=== PATIENT | male | born 1940 | race Caucasian/White ===

== ENCOUNTER 2016-03-17 05:24 | Emergency (ER) | payer MEDICARE, OTHER ==
[~2016-03-17] VITALS: Ht 198.1 cm; Wt 120.0 kg
[2016-03-17 05:28] VITALS: Ht 198.1 cm; Wt 120.0 kg
[2016-03-17] MEDS ORDERED: SOD CHLORIDE 0.9% 500 ML IV STA (06:40)
[2016-03-17] MEDS ORDERED: morphine 2 MG INJ IV STA (06:40)
--- NOTE | 2016-03-17 07:17 | ERA ---
ER Documentation Chief Complaint Date/Time DATE: 03/17/16 TIME: 07:12 Chief Complaint dizziness tonight, cant walk quite right HPI This 75-year-old male presents emergency room for feeling dizzy this morning approximately one hour ago. States this happens from time to time as he has multiple wounds from the [place] War. He has had sequela I since then. He denies chest pain shortness of breath nausea vomiting. The dizziness is described as lightheadedness. He feels otherwise well. 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 ROS All systems reviewed and are negative except as per history of present illness. PMhx/Soc History of Surgery: No Anesthesia Reaction: No Hx Neurological Disorder: No Hx Respiratory Disorders: No Hx Cardiac Disorders: No Hx Psychiatric Problems: No Hx Miscellaneous Medical Probl: No Hx Alcohol Use: No Hx Substance Use: No Smoking Status: Never smoker Physical Exam Vitals Vital Signs Date Time Temp Pulse Resp B/P Pulse Ox O2 Delivery O2 Flow Rate FiO2 03/17/16 05:28 118 16 169/88 Physical Exam Const: [] No distress Head: Atraumatic Eyes: Normal Conjunctiva, EOMI, PERRLA ENT: Normal External Ears, Nose and Mouth. Neck: Full range of motion..~ No meningismus. Resp: Clear to auscultation bilaterally Cardio: Regular rate and rhythm, no murmurs Abd: Soft, obese, non tender, non distended. Normal bowel sounds Skin: No petechiae or rashes Back: No midline or flank tenderness Ext: No cyanosis, or edema Neur: Awake and alert and oriented 3, cranial nerves II through XII intact, cerebellar intact, normal gait Psych: Normal Mood and Affect Result Diagram: 03/17/16 0700 03/17/16 0700 Results 24 hrs Laboratory Tests Test 03/17/16 07:00 Activated Partial Thromboplast Time 36.8Sec Alanine Aminotransferase (ALT/SGPT) 24IU/L Albumin 3.6g/dl Albumin/Globulin Ratio 1.12 Alkaline Phosphatase 62IU/L Anion Gap 16 Aspartate Amino Transf (AST/SGOT) 24IU/L Basophils # 0.010^3/ul Basophils % 0.2% Blood Morphology Comment Blood Urea Nitrogen 22mg/dl Calcium Level 8.8mg/dl Carbon Dioxide Level 25mmol/L Chloride Level 105mmol/L Creatinine 0.94mg/dl Direct Bilirubin 0.00mg/dl Eosinophils # 0.010^3/ul Eosinophils % 0.6% Globulin 3.20g/dl Glucose Level 98mg/dl Hematocrit 42.6% Hemoglobin 14.3g/dl INR International Normalized Ratio 1.59 Indirect Bilirubin 0.6mg/dl Lactic Acid Level 1.3mmol/L Lipase 65U/L Lymphocytes # 1.010^3/ul Lymphocytes % 16.3% Mean Corpuscular Hemoglobin 28.3pg Mean Corpuscular Hemoglobin Concent 33.5g/dl Mean Corpuscular Volume 84.4fl Mean Platelet Volume 8.5fl Monocytes # 0.510^3/ul Monocytes % 7.4% Neutrophils # 4.810^3/ul Neutrophils % 75.5% Nucleated Red Blood Cells # 0.010^3/ul Nucleated Red Blood Cells % 0.0/100WBC Platelet Count 74033^3/UL Potassium Level 4.1mmol/L Prothrombin Time 19.1Sec Prothrombin Time Ratio 1.5 Red Blood Count 5.0510^6/ul Red Cell Distribution Width 15.4% Sodium Level 142mmol/L Total Bilirubin 0.6mg/dl Total Protein 6.8g/dl Troponin I < 0.012ng/ml White Blood Count 6.410^3/ul Current Medications Medications (Trade) Dose Ordered Sig/Felix Route PRN Reason Start Time Stop Time Status Last Admin Dose Admin Sodium Chloride (NS) 500 ml @ 500 mls/hr Q1H STAT IV 03/17/16 06:40 03/17/16 07:39 DC Morphine Sulfate (morphine) 2 mg ONCE STAT IV 03/17/16 06:40 03/17/16 06:43 DC Procedures/MDM 75-year-old male states that he gets frequent transient episodes of dizziness presents with a recent but arty resolved episode of dizziness. He was monitored in the ER for greater than 3 hours during which time he had no repeat of the dizziness and remained stable on the monitor. He was given IV fluids as well. No signs of ischemia on his EKG and negative troponin. Head CT shows no acute process as well. Patient has excellent follow-up pain he says at [facility] will follow-up with both minister helper and neurologist. Very low concern for subarachnoid hemorrhage, meningitis, acute coronary syndrome. He does have a subtherapeutic INR level on Coumadin. I have informed him of this. I'm giving him strict return precautions to return to the emergency room as well as primary care follow-up instructions to call today for appointment for specialist as well as PCP as soon as possible. EKG interpretation: Atrial fibrillation rate of 64, normal axis, no ST or T- wave changes concerning for acute ischemia. surveillance monitor interpretation: Rate controlled A. fib with no other arrhythmia Chest X ray interpretation: No acute process no widening sign pneumothorax no hemothorax no bony edema no fractures, cardiomegaly present. CT head interpretation: I see no acute process, no hemorrhage no mass effect no midline shift no skull fractures Departure Diagnosis: Primary Impression: Subtherapeutic international normalized ratio (INR) Additional Impression: Near syncope Condition: Stable HAYDEN DAVIS DO Mar 17, 2016 07:17
--- NOTE | 2016-03-17 07:26 | RADRPT ---
PROCEDURE: CT Brain without. CLINICAL INDICATION: Dizziness, remote history of head injury TECHNIQUE: A CT of the brain was performed utilizing axial sections from the skull base through th e vertex without contrast. The scan was reviewed in soft tissue brain and high frequency resolution bone algorithm windows. Images were reviewed on a high-resolution PACS workstation. The exam CTDI = 40.63 mGy, and the DLP = 720.23 mGy-cm. COMPARISON: None available FINDINGS: There is mild prominence of the lateral ventricles and cerebral sulci, consistent with diffuse cereb ral atrophy. There is no intracranial hemorrhage, midline shift, or mass effect. No abnormal extra- axial fluid collections are identified. There is hypoattenuation of the periventricular white matte r. There are encephalomalacic changes of the left medial occipital lobe and left parafalcine frontal lobe. Small bilateral basal ganglia lacunar infarcts are noted. The baptiste-white differentiation is well preserved. The basal cisterns are patent. The posterior fossa is unremarkable. Vascular calc ifications are noted within the intracranial portions of the vertebral and internal carotid arteries . The visualized portions of the orbits are unremarkable. The paranasal sinuses and mastoid air cells are clear. No calvarial fracture or abnormality are identified. The soft tissues are unremarkable . IMPRESSION: 1. No acute intracranial abnormality. There are encephalomalacic changes of the left parafalcine fr ontal lobe and left medial occipital lobe, which may reflect the sequela of prior ischemic injury or trauma. 2. Bilateral basal ganglia lacunar infarcts. 3. Age related senescent changes with mild diffuse cerebral atrophy. 4. Patchy periventricular hypoattenuation, nonspecific finding, most commonly associated with micro vascular ischemic changes. 5. Arterial atherosclerosis. RPTAT: HH .Katerin Smith MD, Date Time Electronically viewed and signed by .Katerin Smith MD, MD on 03/17/2016 07:25 .G/
--- NOTE | 2016-03-17 07:28 | RADRPT ---
PROCEDURE: XR Chest. CLINICAL INDICATION: Abdominal pain TECHNIQUE: A single AP view of the chest was obtained. COMPARISON: None. FINDINGS: No focal airspace opacification, pleural effusion or pneumothorax is seen. The cardiomediastinal si lhouette is mildly enlarged. Calcifications are seen within the aortic arch. The osseous structure s are unremarkable. IMPRESSION: 1. No radiographic evidence of acute cardiopulmonary disease. 2. Mild cardiomegaly and aortic atherosclerosis. RPTAT: HH .Katerin Smith MD, Date Time Electronically viewed and signed by .Katerin Smith MD, MD on 03/17/2016 07:27 .G/
[2016-03-17 07:55] LABS: ALBUMIN 3.6 g/dl (3.3-4.9); BASOPHILS % 0.2 % (0.0-2.0); CHLORIDE 105 mmol/L (97-110); EOSINOPHILS % 0.6 % (0.0-7.0); HEMATOCRIT 42.6 % (42.0-52.0); HEMOGLOBIN 14.3 g/dl (14.0-18.0); LYMPHOCYTES % 16.3 % (15.0-51.0); MEAN CORPUSCULAR HEMOGLOBIN 28.3 pg (29.0-33.0); MEAN CORPUSCULAR HGB CONC 33.5 g/dl (32.0-37.0); MEAN CORPUSCULAR VOLUME 84.4 fl (82.0-101.0); MEAN PLATELET VOLUME 8.5 fl (7.4-10.4); MONOCYTE # 0.5 10^3/ul (0.3-0.9); MONOCYTES % 7.4 % (0.0-11.0); NEUTROPHIL # 4.8 10^3/ul (1.6-7.5); NEUTROPHILS % 75.5 % (39.0-77.0); PLATELET COUNT 163 10^3/UL (140-440); POTASSIUM 4.1 mmol/L (3.5-5.1); RED BLOOD COUNT 5.05 10^6/ul (4.70-6.10); RED CELL DISTRIBUTION WIDTH 15.4 % (11.5-14.5); SODIUM 142 mmol/L (135-144); UNCORRECTED WBC 6.4 10^3/ul (4.8-10.8); WHITE BLOOD COUNT 6.4 10^3/ul (4.8-10.8)
[2016-03-17 07:58] LABS: ALANINE AMINOTRANSFERASE 24 IU/L (13-69); ALBUMIN/GLOBULIN RATIO 1.12; ALKALINE PHOSPHATASE 62 IU/L (42-121); ANION GAP 16 (8-16); ASPARTATE AMINO TRANSFERASE 24 IU/L (15-46); BILIRUBIN,INDIRECT 0.6 mg/dl (0-1.1); BILIRUBIN,TOTAL 0.6 mg/dl (0.2-1.3); BLOOD UREA NITROGEN 22 mg/dl (7-20); CALCIUM 8.8 mg/dl (8.4-10.2); CARBON DIOXIDE 25 mmol/L (21-31); CREATININE 0.94 mg/dl (0.61-1.24); GLUCOSE 98 mg/dl (70-220); TOTAL PROTEIN 6.8 g/dl (6.1-8.1)
[2016-03-17 07:59] LABS: INR 1.59; PROTIME 19.1 Sec (12.2-14.2); PT RATIO 1.5
[2016-03-17 08:00] LABS: PARTIAL THROMBOPLASTIN TIME 36.8 Sec (25.0-35.0)
[2016-03-17 08:11] LABS: CONDITION 1; LH ANALYZER COMMENTS 1
[2016-03-17 08:33] LABS: TROPONIN-I < 0.012 ng/ml (0.00-0.12)
[2016-03-17] MEDS ORDERED: CLOT30CR24 TOP (10:21)
[2016-03-17 10:31] VITALS: BP 158/100; PULSE 78; RESP 20; TEMP 98.3
== END 2016-03-17 10:42 | disposition home or self-care (01) ==
LOC: E/R 05:24
DX: R79.1 Abnormal coagulation profile (principal); R55 Syncope and collapse
CPT/HCPCS: 36415; 70450; 71010; 80053; 83605; 83690; 84484; 85025; 85610; 85730; 93005; 99285; J7040

== ENCOUNTER 2016-05-29 08:43 | Emergency (ER) | payer MEDICARE, OTHER ==
[~2016-05-29] VITALS: Wt 98.0 kg
[~2016-05-29 08:43] MED LIST: CLOT30CR24 TOP
[2016-05-29 11:17] LABS: INR 1.52; PROTIME 18.4 Sec (12.2-14.2); PT RATIO 1.4
[2016-05-29 11:18] LABS: PARTIAL THROMBOPLASTIN TIME 35.6 Sec (25.0-35.0)
[2016-05-29 11:50] VITALS: BP 162/80; PULSE 70; RESP 20; TEMP 98
--- NOTE | 2016-05-29 11:50 | ERD ---
ER Documentation Chief Complaint Date/Time DATE: 05/29/16 TIME: 11:48 Chief Complaint pt needs pt and inr checked , no physical complaints. possibly missed dose HPI This 76-year-old male presents with a request to have a PT INR check. He is on Coumadin for atrial fibrillation. Denies any active bleeding, chest pain, shortness of breath. He usually gets his blood drawn every 1-2 weeks with primary doctor but is unable to travel to his primary doctor today and presented to a closer hospital. He takes 6 milligrams of Coumadin per day ROS All systems reviewed and are negative except as per history of present illness. Medications Home Meds Active Scripts Clotrimazole* (Clotrimazole* AF) 1% - 30 Gm Cream.gm., 1 APPLIC TOP BID for 7 Days, TUB Prov:HAYDEN DAVIS DO 03/17/16 PMhx/Soc History of Surgery: No Anesthesia Reaction: No Hx Neurological Disorder: No Hx Respiratory Disorders: No Hx Cardiac Disorders: No Hx Psychiatric Problems: No Hx Miscellaneous Medical Probl: No Hx Alcohol Use: No Hx Substance Use: No Physical Exam Vitals Vital Signs Date Time Temp Pulse Resp B/P Pulse Ox O2 Delivery O2 Flow Rate FiO2 05/29/16 08:52 98.5 71 20 170/85 97 Physical Exam Const: [] Alert, pac-hhe-lnithnqad. Morbidly obese. Head: Atraumatic Eyes: Normal Conjunctiva ENT: Normal External Ears, Nose and Mouth. Neck: Full range of motion..~ No meningismus. Resp: Clear to auscultation bilaterally Cardio: Regular rate and irregular rhythm. Rhythm, no murmurs Abd: Soft, non tender, non distended. Normal bowel sounds Skin: No petechiae or rashes Back: No midline or flank tenderness Ext: No cyanosis, or edema Neur: Awake and alert Psych: Normal Mood and Affect Results 24 hrs Laboratory Tests Test 05/29/16 10:35 Prothrombin Time 18.4Sec Prothrombin Time Ratio 1.4 INR International Normalized Ratio 1.52 Activated Partial Thromboplast Time 35.6Sec Procedures/MDM INR is 1.5 today. Patient has been instructed to take an additional one half tablet of Coumadin and is instructed to do so. Patient is advised to follow-up with primary care doctor for ongoing primary care and blood pressure recheck his blood pressure is elevated today. Patient has no other signs or symptoms of emergent illness so he should return to ER for new or worsening symptoms. The patient was stable with no new complaints during the ER course. Clinically, there is no current evidence to suggest meningitis, sepsis, acute abdomen, pneumonia, acute coronary syndrome, pulmonary embolism, or any other emergent condition appearing to require further evaluation or hospitalization. The patient should certainly return for any new or worsening symptoms per the aftercare instructions. They should otherwise follow-up with her primary care doctor for reevaluation this week. Departure Diagnosis: Primary Impression: Atrial fibrillation Atrial fibrillation type: chronic Qualified Code: I48.2 - Chronic atrial fibrillation Additional Impressions: Encounter for laboratory test Hypertension Hypertension type: essential hypertension Qualified Code: I10 - Essential hypertension Condition: Stable Patient Instructions: Atrial Fibrillation, High Blood Pressure (Hypertension) Additional Instructions: INR is 1.5 today. Follow-up with primary doctor in temporarily increase Coumadin as advised. ANIRUDH MULLIGAN MD May 29, 2016 11:50
== END 2016-05-29 11:55 | disposition home or self-care (01) ==
LOC: FTE 08:43
DX: I48.2 Chronic atrial fibrillation (principal); I10 Essential (primary) hypertension
CPT/HCPCS: 85610; 85730; 99283

== ENCOUNTER 2016-06-02 09:40 | Emergency (ER) | payer MEDICARE, OTHER ==
[~2016-06-02] VITALS: Ht 180.3 cm; Wt 13.6 kg
[2016-06-02 09:50] VITALS: Ht 180.3 cm; Wt 13.6 kg
--- NOTE | 2016-06-02 10:26 | ERD ---
ER Documentation Chief Complaint Date/Time DATE: 06/02/16 TIME: 10:25 Chief Complaint GROUND LEVEL MECHANICAL FALL, DENIES PAIN. HPI 76-year-old male who presents to the emergency room for ground-level mechanical fall. Patient stated that he going to the bathroom at around 2 AM to urinate, when he was unable to control his urine, had a mechanical fall. Stated that he was able to control his balance before he fell landed in his bilateral hand/ forearms. During history taking patient is forgetful and unable to express the sequence of the events that happened last night. Stated that he has history of traumatic brain injury in a couple of strokes in the past and this is the reason why "sometimes it is hard for me to express the events." He also stated that he has history of incontinence thrice but this is the first time that happened this year. He also stated that he has concern about his Coumadin 6 mg daily because he was not able to take 1 dose last night. Denies headache, direct head injury, loss of consciousness, dizziness, blurry vision, changes in vision, photophobia, facial pain, ear pain, throat pain, difficulty swallowing, neck pain, shoulder pain, chest pain, cough, hemoptysis, abdominal pain, back pain, loss of appetite, nausea, vomiting, projectile vomiting, hematochezia, diarrhea, constipation, urinary symptoms, bladder and bowel incontinences, extremity weakness, unilateral weakness, extremity tenderness, numbness or tingling sensation, difficulty walking, recent travel, recent exposure to illness, recent antibiotic use in the last 3 months, fever, chills. Allergy: No known drug allergies. PMH: Chronic traumatic brain injury, stroke. Medications: Coumadin 6 mg p.o. Surgery: Family history: Denies. Primary Social History: Retired. Denies smoking, use of alcohol, use of illegal drugs. Primary care physician: Dr. Richie Ashraf (IM/GI). Telephone number: . ROS All systems reviewed and are negative except as per history of present illness. Medications Home Meds Active Scripts Cephalexin* (Keflex*) 500 Mg Capsule, 500 MG PO BID for 7 Days, CAP Prov:PASILABAN,KLAR F 06/02/16 Clotrimazole* (Clotrimazole* AF) 1% - 30 Gm Cream.gm., 1 APPLIC TOP BID for 7 Days, TUB Prov:HAYDEN DAVIS DO 03/17/16 Allergies Allergies: Coded Allergies: No Known Allergy (Unverified , 06/02/16) PMhx/Soc History of Surgery: No Anesthesia Reaction: No Hx Neurological Disorder: No Hx Respiratory Disorders: No Hx Cardiac Disorders: No Hx Psychiatric Problems: No Hx Miscellaneous Medical Probl: No Hx Alcohol Use: No Hx Substance Use: No Physical Exam Vitals Vital Signs Date Time Temp Pulse Resp B/P Pulse Ox O2 Delivery O2 Flow Rate FiO2 06/02/16 09:50 97.6 77 20 151/89 96 Physical Exam CONSTITUTIONAL: Well-appearing; well-nourished. HEAD: Normocephalic; atraumatic. EYES: Conjunctiva clear, sclera non-icteric, EOM intact. PERRL. Extraocular movement of his eyes is within normal limits. No pain on eye movement. Ears: Hearing intact. EACs clear, TMs non-bulging, non-inflamed, translucent & mobile, ossicles normal appearance, No obstructions, no erythema, no discharges Nose: No obstructions. No polyps. No external lesions. Mucosa non-inflamed. No external lesions, septum and turbinates normal. No rhinorrhea. No discharges. Frontal sinus is non-tender to palpation. Maxillary sinus is non-tender to palpation. MOUTH: Moist mucous membranes, no lesion, no obstructions, no vesicles, no thrush, patent airway Throat: Uvula in midline. Right tonsil is +1 with no erythema, no exudate. Left tonsil is +1 with no erythema, no exudate. Tolerating secretions well. Good gag reflex. Patent airway. Neck: Supple, without lesions, bruits, or adenopathy. No mass. Thyroid non- enlarged and non-tender to palpation. CHEST: Symmetrical chest. Respirations even and not labored. No retractions noted. CARDIOVASCULAR: Normal S1, S2. RRR. No murmurs, gallops. RESPIRATORY: Normal chest excursion with respiration; breath sounds clear and equal bilaterally; no wheezes, rhonchi, or rales. Breathing even and unlabored. Speaking in clear, full, and complete sentences w/ ease. ABDOMEN: Normal bowel sounds normal. Soft, round, non-distended, non-guarding, no tenderness, no rebound, no organomegaly, no masses, no pulsating abdominal mass. No hernia. No peritoneal signs. : No CVA tenderness. BACK: Symmetrical shoulder. Spine is midline without deformity, tenderness. No evidence of trauma or deformity. PELVIS: Stable pelvis. No evidence of trauma or deformity. MUSCULOSKELETAL: Normal gait and station. No misalignment, asymmetry, crepitation, defects, tenderness, masses, effusions, decreased range of motion, instability, atrophy or abnormal strength or tone in the head, neck, spine, ribs , pelvis or extremities. Mild supraspinatus tenderness right upper and left upper (stated that he has chronic bilateral shoulder pain due to the fact that he was at [place] when he was younger and had injuries to bilateral shoulders, did not have a surgery for this). Bilateral shoulders has no obvious deformity/ swelling/discoloration and has good and full range of motion. Bilateral shoulder has no tenderness. Good and full range of motion of neck without pain/ limitation/discomfort. Good and full range of motion of spine without pain/ limitation/discomfort. Bilateral hips are stable. Negative on straight leg test. Bilateral knees are unremarkable. No calf tenderness. NEUROVASCULAR: Distal pulses are present. Pedal pulse are present, equal, and normal. Capillary refills are < 2 seconds. NEUROLOGIC: Alert and oriented x4. Speaks full and clear sentences. Cranial Nerves II-XII normal. Sensation to pain, touch, and proprioception normal. Grossly unremarkable. Romberg test is negative. Forgetful. Unable to express the full sequence of the events that happened last night. PSYCHOLOGICAL: The patients mood and manner are appropriate. No hallucinations , delusions. Not SI. Not HI. Has the capacity to decide for self SKIN: Normal for age and ethnicity; warm; dry; good turgor; no apparent lesions or exudates. No rashes, hives, discoloration. Intact. Results 24 hrs Laboratory Tests Test 06/02/16 10:46 Urine Color LT. YELLOW Urine Clarity CLEAR Urine pH 5.5 Urine Specific Fords 1.015 Urine Ketones NEGATIVE Urine Nitrite NEGATIVE Urine Bilirubin NEGATIVE Urine Urobilinogen 0.2 E.U./dL Urine Leukocyte Esterase 1+ Urine Microscopic RBC 0-2/HPF Urine Microscopic WBC 10-25/HPF Urine Epithelial Cells FEW Urine Bacteria FEW Urine Hemoglobin 1+ Urine Glucose NEGATIVE% Urine Total Protein 1+ Current Medications Medications (Trade) Dose Ordered Sig/Felix Route PRN Reason Start Time Stop Time Status Last Admin Dose Admin Ceftriaxone Sodium (Rocephin) 1 gm ONCE ONCE IM 06/02/16 12:00 06/02/16 12:01 DC Procedures/MDM Examination: Please see physical examination. Disease process, medical treatment was explained to the patient and family member. They verbalized understanding and agreed with the diagnostic tests, medical treatment, and follow-up care. Radiology: CT of the head. Impression: No significant change since 03/17/2016. Acute intracranial abnormality identified. Moderate chronic microvascular disease and intracranial atherosclerosis. Chronic right posterior limb internal capsule, left thalamic and left lentiform nucleus lacunar infarcts. Moderate volume loss. Urinalysis: Reviewed. Urine culture: Treatment: Ceftriaxone IM. Re-evaluation: Denies headache, dizziness, blurry vision, neck pain, chest pain , back pain, abdominal pain. No nausea and vomiting. No unilateral deficits. No focal neuro deficits. Romberg test is negative. Consultation: None. Differential diagnosis: Stroke versus possible head injury versus urinary tract infection Medical decision makin-year-old male who presents to the emergency room for ground-level mechanical fall. Patient stated that he going to the bathroom at around 2 AM to urinate, when he was unable to control his urine, had a mechanical fall. Stated that he was able to control his balance before he fell landed in his bilateral hand/forearms. During history taking patient is forgetful and unable to express the sequence of the events that happened last night. Stated that he has history of traumatic brain injury in a couple of strokes in the past and this is the reason why "sometimes it is hard for me to express the events." He also stated that he has history of incontinence thrice but this is the first time that happened this year. He also stated that he has concern about his Coumadin 6 mg daily because he was not able to take 1 dose last night. Patient's complaint, patient's history about his complaint, my physical findings , diagnostic test results, my re-evaluation are consistent with my final diagnosis of urinary tract infection (uncomplicated), mechanical fall with no significant injury. Case and medical management was discussed with supervising emergency room physician, Dr. Miguel Lauren who agreed with my medical decision making. He also agreed with my diagnostic tests and follow-up care. Medications prescribed are the following: Keflex. Patient and family member are made aware of the side effects and adverse reactions of the medications prescribed. Instructed on when to seek emergent and medical attention in case allergic/anaphylactic reactions or severe side effects and or adverse reactions to medications. Patient and family member verbalized understanding. Patient instructed Instructed to follow-up with his PCP in 24-48 hours. Patient stated that they will call his primary care provider to schedule an appointment. Instructed to Call 911 for chest pain, shortness of breath. Advised to come back here in ED as soon as possible for severity of symptoms which includes but not limited to: any new symptoms; shortness of breath/difficulty of breathing; cardiovascular changes; severe gastrointestinal symptoms; signs and symptoms of bleeding and or infection; signs of compartment syndrome/neurovascular changes; neurological changes/deficits. Patient and family member verbalized understanding. Upon discharge, patient is alert and oriented x 4, speaks full and clear sentences, denies pain, has no neurological deficits, has no neurovascular deficits, difficulty of breathing. Breathing even and unlabored. Lung sounds are clear to auscultation. Not in distress. Appears comfortable. Ambulatory with steady gait. Appears satisfied with care provided here in ED. Departure Diagnosis: Primary Impression: Fall with no significant injury Encounter type: initial encounter Qualified Code: W19.XXXA - Fall with no significant injury, initial encounter Additional Impression: Fall Encounter type: initial encounter Qualified Code: W19.XXXA - Fall, initial encounter Condition: Good Additional Instructions: atient instructed Instructed to follow-up with his PCP in 24-48 hours. Instructed to Call 911 for chest pain, shortness of breath. Advised to come back here in ED as soon as possible for severity of symptoms which includes but not limited to: any new symptoms; shortness of breath/difficulty of breathing; cardiovascular changes; severe gastrointestinal symptoms; signs and symptoms of bleeding and or infection; signs of compartment syndrome/neurovascular changes; neurological changes/deficits. Patient and family member verbalized understanding. DEBBY WHARTON Jun 02, 2016 10:26
[2016-06-02 10:58] LABS: ADD UMIC YES; URINE BILIRUBIN (Dip) NEGATIVE (NEGATIVE); URINE BLOOD (Dip) 1+ (NEGATIVE); URINE COLOR LT. YELLOW (YELLOW); URINE GLUCOSE (Dip) NEGATIVE (NEGATIVE); URINE KETONES (Dip) NEGATIVE (NEGATIVE); URINE LEUKOCYTE ESTERASE (Dip) 1+ (NEGATIVE); URINE NITRITE (Dip) NEGATIVE (NEGATIVE); URINE TOTAL PROTEIN (Dip) 1+ (NEGATIVE); URINE UROBILINOGEN (Dip) 0.2 E.U./dL (0.1-1.0)
[2016-06-02 11:22] LABS: BACTERIA,URINE FEW; URINE RBCS 0-2 /HPF (0)
[2016-06-02] MEDS ORDERED: CEPH-443 PO (11:27)
--- NOTE | 2016-06-02 11:36 | RADRPT ---
PROCEDURE: CT Brain without contrast. CLINICAL INDICATION: Neurologic deficit TECHNIQUE: A CT of the brain was performed on multidetector high-resolution CT scanner utilizing a xial sections from the skull base through the vertex without contrast. One or more of the following dose reduction techniques were used: Automated exposure control, Adjustment of the mA and/or kV acc ording to patient size, and/or use of iterative reconstruction technique. DOSE: CTDI = 44 mGy and the DLP = 810 mGy-cm. COMPARISON: Head CT 03/17/2016 FINDINGS: No acute intracranial hemorrhage, significant mass effect or midline shift. Patchy hypoattenuation o f the cerebral white matter is compatible with moderate chronic microvascular ischemic changes. Resizer Operator juan miguel right posterior limb internal capsule, left thalamic, and left lentiform nucleus lacunar infarct s. Extensive vascular calcifications. Stable ventricle size. Moderate volume loss. No significant opacification of the visualized paranasal sinuses or mastoids. IMPRESSION: No significant change since 03/17/2016 No acute intracranial abnormality identified. Moderate chronic microvascular disease and intracranial atherosclerosis. Chronic right posterior limb internal capsule, left thalamic and left lentiform nucleus lacunar infa rcts. Moderate volume loss. RPTAT: AA .George Woods MD, Date Time Electronically viewed and signed by .George Woods MD, on 06/02/2016 11:35 .T/
[2016-06-02] MEDS ORDERED: CEFTRIAXONE 1 GM INJ IM ONE (12:00)
== END 2016-06-02 12:10 | disposition home or self-care (01) ==
LOC: FTE 09:40
DX: Z04.3 Encounter for examination and observation following other accident (principal); R93.0 Abnormal findings on diagnostic imaging of skull and head, not elsewhere classified; R82.79 Other abnormal findings on microbiological examination of urine
CPT/HCPCS: 70450; 81001; 87086; J0696; 81003; 96372

== ENCOUNTER 2016-07-31 08:22 | Emergency (ER) | payer MEDICARE, OTHER ==
[~2016-07-31] VITALS: Ht 170.2 cm; Wt 136.0 kg
[~2016-07-31 08:22] MED LIST changes: +CEPH-443 PO
[2016-07-31 08:28] VITALS: Ht 170.2 cm; Wt 136.0 kg
[2016-07-31] MEDS ORDERED: HYDROCODONE/APAP (5/325) TAB PO ONE (08:30)
[2016-07-31 08:48] LABS: ADD SCAN DIFF NO
[2016-07-31 08:49] LABS: BASOPHILS % 0.3 % (0.0-2.0); EOSINOPHILS % 0.5 % (0.0-7.0); HEMATOCRIT 44.7 % (42.0-52.0); HEMOGLOBIN 14.5 g/dl (14.0-18.0); LYMPHOCYTES % 15.9 % (15.0-51.0); MEAN CORPUSCULAR HEMOGLOBIN 28.3 pg (29.0-33.0); MEAN CORPUSCULAR HGB CONC 32.4 g/dl (32.0-37.0); MEAN CORPUSCULAR VOLUME 87.1 fl (82.0-101.0); MEAN PLATELET VOLUME 9.6 fl (7.4-10.4); MONOCYTE # 0.5 10^3/ul (0.3-0.9); MONOCYTES % 7.7 % (0.0-11.0); NEUTROPHIL # 4.7 10^3/ul (1.6-7.5); NEUTROPHILS % 75.3 % (39.0-77.0); PLATELET COUNT 175 10^3/UL (140-415); RED BLOOD COUNT 5.13 10^6/ul (4.70-6.10); RED CELL DISTRIBUTION WIDTH 14.7 % (11.5-14.5); WHITE BLOOD COUNT 6.3 10^3/ul (4.8-10.8)
[2016-07-31 09:11] LABS: ALBUMIN 3.7 g/dl (3.3-4.9)
--- NOTE | 2016-07-31 09:11 | RADRPT ---
PROCEDURE: US DVT. CLINICAL INDICATION: Chest pain. Evaluate for deep venous thrombosis. TECHNIQUE: Multiple longitudinal and transverse images of the left lower extremity veins were obta ined with baptiste scale and color Doppler imaging. 2D grayscale measurements with compression, color D oppler flow, and augmentation was performed. The calf veins were interrogated as well. COMPARISON: No prior studies are available for comparison. FINDINGS: The left common femoral, superficial femoral and popliteal veins are normally compressible throughou t. Color flow demonstrates normal filling of the vessel. Normal waveforms are visualized and there is normal response to augmentation. IMPRESSION: 1. No evidence of a deep vein thrombosis involving the left lower extremity. RPTAT: [facility] Physician Rebeca Date Time Electronically viewed and signed by Physician Rebeca on 07/31/2016 09:11 /
[2016-07-31 09:12] LABS: CHLORIDE 110 mmol/L (97-110); SODIUM 141 mmol/L (135-144)
[2016-07-31 09:14] LABS: ANION GAP 8 (8-16); ASPARTATE AMINO TRANSFERASE 19 IU/L (15-46); BILIRUBIN,INDIRECT 0.7 mg/dl (0-1.1); BILIRUBIN,TOTAL 0.7 mg/dl (0.2-1.3); CARBON DIOXIDE 27 mmol/L (21-31); CREATININE 1.04 mg/dl (0.61-1.24)
[2016-07-31 09:15] LABS: ALANINE AMINOTRANSFERASE 22 IU/L (13-69); ALBUMIN/GLOBULIN RATIO 1.08; ALKALINE PHOSPHATASE 64 IU/L (42-121); BLOOD UREA NITROGEN 22 mg/dl (7-20); CALCIUM 9.1 mg/dl (8.4-10.2); GLUCOSE 102 mg/dl (70-220); TOTAL PROTEIN 7.1 g/dl (6.1-8.1)
[2016-07-31] MEDS ORDERED: NEOM14.28 TP (09:19)
[2016-07-31] MEDS ORDERED: WARF2TAB PO (09:19)
[2016-07-31] MEDS ORDERED: MECL-77 PO (09:19)
[2016-07-31] MEDS ORDERED: ATOR20TA38 PO (09:19)
[2016-07-31] MEDS ORDERED: DILT120C77 PO (09:19)
[2016-07-31] MEDS ORDERED: ASPI81TA3 PO (09:19)
[2016-07-31] MEDS ORDERED: LISI20TA11 PO (09:19)
[2016-07-31 09:29] LABS: TROPONIN-I < 0.012 ng/ml (0.00-0.12)
[2016-07-31 09:33] LABS: INR 2.54; PROTIME 27.7 Sec (12.2-14.2); PT RATIO 2.2
[2016-07-31 09:34] LABS: PARTIAL THROMBOPLASTIN TIME 46.2 Sec (25.0-35.0)
--- NOTE | 2016-07-31 09:38 | RADRPT ---
PROCEDURE: XR Chest. CLINICAL INDICATION: Chest pain TECHNIQUE: Chest AP portable. COMPARISON: Once FINDINGS: The mediastinal structures are unremarkable. There is calcification of the thoracic aorta (consiste nt with atherosclerosis). There is mild cardiomegaly. There is mild pulmonary venous hypertension. The lung vicente are unremarkable. No consolidation is identified. The pleural spaces are unremar kable. There are senescent changes of the axial skeleton. IMPRESSION: Calcification of the thoracic aorta (consistent with atherosclerosis) Mild cardiomegaly Mild pulmonary venous hypertension RPTAT: [facility] .Kailash Angel MD, Date Time Electronically viewed and signed by .Kailash Angel MD, on 07/31/2016 09:38 .B/
--- NOTE | 2016-07-31 10:11 | ERD ---
ER Documentation Chief Complaint Date/Time DATE: 07/31/16 TIME: 826 Chief Complaint left leg pain HPI 76-year-old male presents the emergency department by ambulance from his care facility for evaluation of left leg pain. Patient is a difficult historian with what appears to be an underlying traumatic brain injury for many years ago. He states he has been having left leg pain for 60 years. It is difficult to assess if there is any new trauma, new pain or anything else it is new or acute. He states the pain is moderate to severe. It is mostly localized in his left thigh area. He denies numbness, tingling, loss of function. ROS All systems reviewed and are negative except as per history of present illness. Medications Home Meds Reported Medications Neomy Sulf/Bacitrac Zn/Poly (NEOSPORIN ANTIBIOTIC OINTMENT) 14.2 Gm Oint...g., 14.2 GM TP TID, #1 TUB 07/31/16 Aspirin* (Aspirin* Chew) 81 Mg Tab.chew, 81 MG PO DAILY, TAB.CHEW 07/31/16 Lisinopril* (Lisinopril*) 20 Mg Tablet, 20 MG PO BID, #30 TAB 07/31/16 Atorvastatin Calcium* (Atorvastatin Calcium*) 20 Mg Tablet, 20 MG PO QHS, #30 TAB 07/31/16 Warfarin Sodium* (Coumadin*) 2 Mg Tablet, 2 MG PO DAILY, TAB 07/31/16 Meclizine Hcl* (Meclizine Hcl*) 25 Mg Tablet, 25 MG PO Q8H Y for DIZZINESS, TAB 07/31/16 Diltiazem Hcl* (Cardizem CD*) 120 Mg Cap.sr.24h, 120 MG PO DAILY, #30 CAP 07/31/16 Discontinued Scripts Cephalexin* (Keflex*) 500 Mg Capsule, 500 MG PO BID for 7 Days, CAP Prov:PASILABANMIRTHAAR F 06/02/16 Clotrimazole* (Clotrimazole* AF) 1% - 30 Gm Cream.gm., 1 APPLIC TOP BID for 7 Days, TUB Prov:HAYDEN DAVIS DO 03/17/16 Allergies Allergies: Coded Allergies: No Known Allergy (Unverified , 06/02/16) PMhx/Soc History of Surgery: No Anesthesia Reaction: No Hx Neurological Disorder: No Hx Respiratory Disorders: No Hx Cardiac Disorders: No Hx Psychiatric Problems: No Hx Miscellaneous Medical Probl: Yes (ptsd) Hx Alcohol Use: No Hx Substance Use: No Smoking Status: Never smoker FmHx Noncontributory for chief complaint Physical Exam Vitals Vital Signs Date Time Temp Pulse Resp B/P Pulse Ox O2 Delivery O2 Flow Rate FiO2 07/31/16 08:31 Nasal Cannula 2 07/31/16 08:28 98.2 60 18 156/90 99 Physical Exam GENERAL: The patient is well developed and appropriate for usual state of health in no apparent distress HEENT: Pupils equal, round, and reactive to light. EOMI. There is no scleral icterus. NECK: C-spine is soft and supple, there is no meningismus. There is no cervical lymphadenopathy. LUNGS: Clear to auscultation bilaterally. There are no rales, wheezes or rhonchi. HEART:irregular rate and rhythm, no murmurs, clicks, rubs or gallops. ABDOMEN: Soft, non-tender, non-distended. There are bowel sounds in all four quadrants. No rebound or guarding. EXTREMITIES: There is no peripheral cyanosis or edema. No focal swelling or erythema. NEURO: The patient moves all four extremities with 5/5 strength. Cranial nerves II - XII are intact. Normal gait. Alert and oriented SKIN: There is no apparent rash or petechiae. HEME/LYMPHATIC: There is no evidence of excessive bruising or lymphedema. PSYCHIATRIC: The patient does not appear anxious or depressed. Pulses: Strong equal bilaterally in both lower extremities in both PT and DP areas. Result Diagram: 07/31/16 0840 07/31/16 0840 Results 24 hrs Laboratory Tests Test 07/31/16 08:40 White Blood Count 6.310^3/ul Red Blood Count 5.1310^6/ul Hemoglobin 14.5g/dl Hematocrit 44.7% Mean Corpuscular Volume 87.1fl Mean Corpuscular Hemoglobin 28.3pg Mean Corpuscular Hemoglobin Concent 32.4g/dl Red Cell Distribution Width 14.7% Platelet Count 24466^3/UL Mean Platelet Volume 9.6fl Neutrophils % 75.3% Lymphocytes % 15.9% Monocytes % 7.7% Eosinophils % 0.5% Basophils % 0.3% Nucleated Red Blood Cells % 0.0/100WBC Neutrophils # 4.710^3/ul Lymphocytes # 1.010^3/ul Monocytes # 0.510^3/ul Eosinophils # 0.010^3/ul Basophils # 0.010^3/ul Nucleated Red Blood Cells # 0.010^3/ul Prothrombin Time 27.7Sec Prothrombin Time Ratio 2.2 INR International Normalized Ratio 2.54 Activated Partial Thromboplast Time 46.2Sec Sodium Level 141mmol/L Potassium Level 4.0mmol/L Chloride Level 110mmol/L Carbon Dioxide Level 27mmol/L Anion Gap 8 Blood Urea Nitrogen 22mg/dl Creatinine 1.04mg/dl Glucose Level 102mg/dl Calcium Level 9.1mg/dl Total Bilirubin 0.7mg/dl Direct Bilirubin 0.00mg/dl Indirect Bilirubin 0.7mg/dl Aspartate Amino Transf (AST/SGOT) 19IU/L Alanine Aminotransferase (ALT/SGPT) 22IU/L Alkaline Phosphatase 64IU/L Troponin I < 0.012ng/ml Total Protein 7.1g/dl Albumin 3.7g/dl Globulin 3.40g/dl Albumin/Globulin Ratio 1.08 Current Medications Medications (Trade) Dose Ordered Sig/Felix Route PRN Reason Start Time Stop Time Status Last Admin Dose Admin Acetaminophen/ Hydrocodone Bitart ([place] (5/325)) 1 tab ONCE ONCE PO 07/31/16 08:30 07/31/16 08:31 DC Procedures/MDM Patient was taken to a room, seen and evaluated. Comfort measures were initiated. Diagnostic tests were ordered and reviewed. 3 LEAD RHYTHM STRIP: Atrial fibrillation with controlled ventricular response EK lead EKG reviewed by myself: Atrial fibrillation with controlled ventricular response Right bundle branch block No ST elevation, depression, or T wave inversion Impression: Nonspecific EKG RADIOLOGY: reviewed with the radiologist REEVALUATION: Patient remained comfortable in appearance. MEDICAL DECISION MAKIN-year-old male presents what appears to be chronic leg pain. Patient's workup focused on possible vascular causes, but his pulses are normal with no evidence of vascular defect and DVT ultrasounds are negative. Lab work is ruled out significant infection and he has no signs of significant infection on exam. Patient has no clinical evidence of fracture. Overall, patient appears to be clinically well and is appears to be a chronic issue and this appears to be appropriate for outpatient care. Departure Diagnosis: Primary Impression: Pain of left leg Additional Impression: Atrial fibrillation Condition: Stable Patient Instructions: Possible Causes of Low Back or Leg Pain Referrals: LINK AGUSTIN (PCP) Additional Instructions: See your doctor for follow-up as discussed. Take a copy of your test results, if appropriate, to this follow-up visit. See your doctor or return here if your symptoms do not improve as expected. At any time, please return to the emergency department for any change or worsening in her symptoms. ALEXANDRA RINCON July 31, 2016 10:11
[2016-07-31 10:16] VITALS: BP 139/87; PULSE 64; RESP 16; TEMP 98.3
== END 2016-07-31 10:16 | disposition home or self-care (01) ==
LOC: E/R 08:22
DX: M79.605 Pain in left leg (principal); I48.91 Unspecified atrial fibrillation; R40.2142 Coma scale, eyes open, spontaneous, at arrival to emergency department; R40.2252 Coma scale, best verbal response, oriented, at arrival to emergency department; R40.2362 Coma scale, best motor response, obeys commands, at arrival to emergency department; Z79.01 Long term (current) use of anticoagulants; Z79.82 Long term (current) use of aspirin
CPT/HCPCS: 36415; 71010; 80053; 84484; 85025; 85610; 85730; 93005; 93971

== ENCOUNTER 2016-08-08 13:47 | Emergency (ER) | payer MEDICARE, OTHER ==
[~2016-08-08] VITALS: Ht 170.2 cm; Wt 132.5 kg
[~2016-08-08 13:47] MED LIST changes: +ASPI81TA3 PO; +ATOR20TA38 PO; -CEPH-443 PO; -CLOT30CR24 TOP; +DILT120C77 PO; +LISI20TA11 PO; +MECL-77 PO; +NEOM14.28 TP; +WARF2TAB PO
[2016-08-08 13:50] VITALS: Ht 170.2 cm; Wt 132.5 kg
[2016-08-08 15:39] LABS: ADD UMIC YES; URINE BILIRUBIN (Dip) NEGATIVE (NEGATIVE); URINE BLOOD (Dip) NEGATIVE (NEGATIVE); URINE COLOR YELLOW (YELLOW); URINE GLUCOSE (Dip) NEGATIVE (NEGATIVE); URINE KETONES (Dip) NEGATIVE (NEGATIVE); URINE LEUKOCYTE ESTERASE (Dip) 1+ (NEGATIVE); URINE NITRITE (Dip) NEGATIVE (NEGATIVE); URINE TOTAL PROTEIN (Dip) 2+ (NEGATIVE); URINE UROBILINOGEN (Dip) 0.2 E.U./dL (0.1-1.0)
[2016-08-08 15:53] LABS: BACTERIA,URINE MODERATE; SQUAMOUS EPITHELIAL CELL,UR RARE; URINE RBCS 0-2 /HPF (0)
[2016-08-08 16:05] LABS: INR 2.16; PROTIME 24.3 Sec (12.2-14.2); PT RATIO 1.9
[2016-08-08 16:06] LABS: PARTIAL THROMBOPLASTIN TIME 39.7 Sec (25.0-35.0)
[2016-08-08] MEDS ORDERED: CEPH-443 PO (16:18)
--- NOTE | 2016-08-08 16:24 | ERD ---
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 He is having some excessive mild urge incontinence today and wants to check his urine for infection. Is scheduled to have surgery at [facility] over the next month. Additionally patient has a history of CVA and atrial fibrillation is requesting an INR check as he is unable to his doctor yesterday. Denies any bleeding, fevers, vomiting, abdominal pain, additional complaints. ROS All systems reviewed and are negative except as per history of present illness. Medications Home Meds Active Scripts Cephalexin* (Keflex*) 500 Mg Capsule, 500 MG PO QID for 5 Days, CAP Prov:ANIRUDH MULLIGAN MD 08/08/16 Reported Medications Neomy Sulf/Bacitrac Zn/Poly (NEOSPORIN ANTIBIOTIC OINTMENT) 14.2 Gm Oint...g., 14.2 GM TP TID, #1 TUB 07/31/16 Aspirin* (Aspirin* Chew) 81 Mg Tab.chew, 81 MG PO DAILY, TAB.CHEW 07/31/16 Lisinopril* (Lisinopril*) 20 Mg Tablet, 20 MG PO BID, #30 TAB 07/31/16 Atorvastatin Calcium* (Atorvastatin Calcium*) 20 Mg Tablet, 20 MG PO QHS, #30 TAB 07/31/16 Warfarin Sodium* (Coumadin*) 2 Mg Tablet, 2 MG PO DAILY, TAB 07/31/16 Meclizine Hcl* (Meclizine Hcl*) 25 Mg Tablet, 25 MG PO Q8H Y for DIZZINESS, TAB 07/31/16 Diltiazem Hcl* (Cardizem CD*) 120 Mg Cap.sr.24h, 120 MG PO DAILY, #30 CAP 07/31/16 Allergies Allergies: Coded Allergies: No Known Allergy (Unverified , 06/02/16) PMhx/Soc History of Surgery: No Anesthesia Reaction: No Hx Neurological Disorder: No Hx Respiratory Disorders: No Hx Cardiac Disorders: No Hx Psychiatric Problems: No Hx Miscellaneous Medical Probl: Yes (ptsd) Hx Alcohol Use: No Hx Substance Use: No Physical Exam Vitals Vital Signs Date Time Temp Pulse Resp B/P Pulse Ox O2 Delivery O2 Flow Rate FiO2 08/08/16 13:50 97.8 71 20 152/83 94 Physical Exam Const: [] Head: Atraumatic Eyes: Normal Conjunctiva ENT: Normal External Ears, Nose and Mouth. Neck: Full range of motion..~ No meningismus. Resp: Clear to auscultation bilaterally Cardio: Regular rate and rhythm, no murmurs Abd: Soft, non tender, non distended. Normal bowel sounds Skin: No petechiae or rashes Back: No midline or flank tenderness Ext: No cyanosis, or edema Neur: Awake and alert Psych: Normal Mood and Affect Results 24 hrs Laboratory Tests Test 08/08/16 15:08 08/08/16 15:30 Urine Color YELLOW Urine Clarity CLEAR Urine pH 5.5 Urine Specific [place] >=1.030 Urine Ketones NEGATIVE Urine Nitrite NEGATIVE Urine Bilirubin NEGATIVE Urine Urobilinogen 0.2 E.U./dL Urine Leukocyte Esterase 1+ Urine Microscopic RBC 0-2/HPF Urine Microscopic WBC >50/HPF Urine Squamous Epithelial Cells RARE Urine Bacteria MODERATE Urine Hemoglobin NEGATIVE Urine Glucose NEGATIVE% Urine Total Protein 2+ Prothrombin Time 24.3Sec Prothrombin Time Ratio 1.9 INR International Normalized Ratio 2.16 Activated Partial Thromboplast Time 39.7Sec Current Medications Medications (Trade) Dose Ordered Sig/Felix Route PRN Reason Start Time Stop Time Status Last Admin Dose Admin Cephalexin (Keflex) 500 mg ONCE ONCE PO 08/08/16 16:30 08/08/16 16:31 Procedures/MDM Urine shows positive bacteria and leukocytes was sent for culture. Patient's INR is 2.16. Patient shows no signs of acute abdomen, active bleeding, fevers, chest pain, shortness of breath. He was treated with Keflex here Keflex at home. Patient's INR appears to be appropriate today and will be instructed to continue his current regimen and follow-up with PCP as scheduled. The patient was stable with no new complaints during the ER course. Clinically, there is no current evidence to suggest meningitis, sepsis, acute abdomen, pneumonia, acute coronary syndrome, pulmonary embolism, or any other emergent condition appearing to require further evaluation or hospitalization. The patient should certainly return for any new or worsening symptoms per the aftercare instructions. They should otherwise follow-up with her primary care doctor for reevaluation this week. Departure Diagnosis: Primary Impression: UTI (urinary tract infection) Urinary tract infection type: acute cystitis Hematuria presence: without hematuria Qualified Code: N30.00 - Acute cystitis without hematuria Condition: Stable Patient Instructions: Understanding Urinary Tract Infections (UTIs) Referrals: L[facility] AGUSTIN (PCP) Additional Instructions: Urine shows signs of infection was sent for culture. INR is 2.16 today. Adjust or continue current dose accordingly per your primary physician. Recheck otherwise for bleeding, fevers, vomiting, new worsening symptoms. ANIRUDH MULLIGAN MD Aug 08, 2016 16:24
[2016-08-08] MEDS ORDERED: CEPHALEXIN 500 MG CAP PO ONE (16:30)
== END 2016-08-08 16:54 | disposition home or self-care (01) ==
LOC: FTE 13:47
DX: N30.00 Acute cystitis without hematuria (principal); Z79.01 Long term (current) use of anticoagulants; Z79.82 Long term (current) use of aspirin
CPT/HCPCS: 81001; 85610; 85730; 87086; 99283

== ENCOUNTER 2016-08-23 13:44 | Emergency (ER) | payer MEDICARE, OTHER ==
[~2016-08-23] VITALS: Ht 170.2 cm; Wt 133.0 kg
[~2016-08-23 13:44] MED LIST changes: +CEPH-443 PO
[2016-08-23 14:15] VITALS: Ht 170.2 cm; Wt 133.0 kg
[2016-08-23 20:57] VITALS: TEMP 98.3
--- NOTE | 2016-08-23 21:14 | ERA ---
ER Documentation Chief Complaint Date/Time DATE: 08/23/16 TIME: 21:14 Chief Complaint Frequent urination HPI The patient is a 76-year-old male, presenting to the ER because of frequent urination for 3 days. He was seen in the ER about 2 weeks ago for similar symptoms when he was treated with Keflex for acute cystitis. The symptoms got better while he was on antibiotic, however it recurs after he finished the antibiotics. He denies fever, chills, neck pain, chest pain, dyspnea, abdominal pain, vomiting, diarrhea, constipation. He has history of urinary incontinence. He does not smoke nor drink Past medical history: Hypertension, dyslipidemia, urinary incontinence, history of CVA Past surgical history: None ROS All systems reviewed and are negative except as per history of present illness. Medications Home Meds Active Scripts Ciprofloxacin Hcl* (Ciprofloxacin Hcl*) 500 Mg Tablet, 500 MG PO BID for 10 Days , TAB Prov:SONY FERREIRA MD 08/23/16 Reported Medications Warfarin Sodium* (Warfarin Sodium*) Unknown Strength Tablet, PO DAILY, TAB 08/23/16 Aspirin* (Aspirin* Chew) 81 Mg Tab.chew, 81 MG PO DAILY, TAB.CHEW 07/31/16 Lisinopril* (Lisinopril*) 20 Mg Tablet, 20 MG PO BID, #30 TAB 07/31/16 Atorvastatin Calcium* (Atorvastatin Calcium*) 20 Mg Tablet, 20 MG PO QHS, #30 TAB 07/31/16 Meclizine Hcl* (Meclizine Hcl*) 25 Mg Tablet, 25 MG PO Q8H Y for DIZZINESS, TAB 07/31/16 Diltiazem Hcl* (Cardizem CD*) 120 Mg Cap.sr.24h, 120 MG PO DAILY, #30 CAP 07/31/16 Discontinued Reported Medications Neomy Sulf/Bacitrac Zn/Poly (NEOSPORIN ANTIBIOTIC OINTMENT) 14.2 Gm Oint...g., 14.2 GM TP TID, #1 TUB 07/31/16 Warfarin Sodium* (Coumadin*) 2 Mg Tablet, 2 MG PO DAILY, TAB 07/31/16 Discontinued Scripts Cephalexin* (Keflex*) 500 Mg Capsule, 500 MG PO QID for 5 Days, CAP Prov:ANIRUDH MULLIGAN MD 08/08/16 Allergies Allergies: Coded Allergies: No Known Allergy (Unverified , 08/23/16) PMhx/Soc History of Surgery: No Anesthesia Reaction: No Hx Neurological Disorder: No Hx Respiratory Disorders: No Hx Cardiac Disorders: No Hx Psychiatric Problems: No Hx Miscellaneous Medical Probl: Yes (ptsd) Hx Alcohol Use: No Hx Substance Use: No Hx Tobacco Use: No Smoking Status: Never smoker Physical Exam Vitals Vital Signs Date Time Temp Pulse Resp B/P Pulse Ox O2 Delivery O2 Flow Rate FiO2 08/23/16 20:57 98.3 50 16 174/85 96 Room Air 08/23/16 14:15 98.0 51 18 159/74 96 Physical Exam Const: No acute distress. Head: Atraumatic. Eyes: Normal Conjunctiva. ENT: Normal External Ears, Nose and Mouth. Neck: Full range of motion. No meningismus. Resp: Clear to auscultation bilaterally. Cardio: Regular rate and rhythm. Abd: Soft, obese, normal bowel sounds, non tender. No right lower quadrant, right upper quadrant, epigastric, CVA tenderness Skin: No petechiae or rashes. Back: No midline or flank tenderness. Ext: No cyanosis, or edema. Neur: Awake and alert. No focal deficit Psych: Normal Mood and Affect. Results 24 hrs Laboratory Tests Test 08/23/16 21:28 Bedside Urine pH (LAB) 5.5 Bedside Urine Protein (LAB) 2+ Bedside Urine Glucose (UA) Negative Bedside Urine Ketones (LAB) Negative Bedside Urine Blood Trace-lysed Bedside Urine Nitrite (LAB) Negative Bedside Urine Leukocyte Esterase (L 1+ Procedures/MDM MEDICAL MAKING DECISION: The patient is a 76-year-old male, with history of urinary incontinence, presenting with acute cystitis. Urine culture is pending. He is stable for outpatient follow-up The differential diagnoses considered include but are not limited to cholelithiasis, cholecystitis, cystitis, pancreatitis, hepatitis, gastritis, peptic ulcer disease, gastric ulcer, appendicitis, diverticulitis, cholangitis, choledocholithiasis, partial small bowel obstruction. Departure Diagnosis: Primary Impression: UTI (urinary tract infection) Condition: Good Comments He was discharged with Cipro I discussed the findings with the patient. I advised the patient to follow-up with the primary physician in about 1-2 days, sooner if needed and return if any concern. SONY FERREIRA MD Aug 23, 2016 21:14
[2016-08-23 21:25] LABS: URINE BLOOD (Dip) POC Trace-lysed (NEGATIVE)
[2016-08-23] MEDS ORDERED: WARF6TAB35 PO (22:20)
[2016-08-23] MEDS ORDERED: CIPR500T4 PO (22:21)
[2016-08-23 22:43] VITALS: BP 168/88; PULSE 61; RESP 16
== END 2016-08-23 22:49 | disposition home or self-care (01) ==
LOC: E/R 13:44
DX: N39.0 Urinary tract infection, site not specified (principal); I10 Essential (primary) hypertension; Z79.01 Long term (current) use of anticoagulants; Z79.82 Long term (current) use of aspirin
CPT/HCPCS: 81003; 87086; 99283